=== PATIENT | female | born 1955 | race Two or more races ===

== ENCOUNTER → 2020-04-06 | Outpatient (CLI) | payer OTHER | END | disposition home or self-care (01) | LOC: OFIC 805 08:13 | PROVIDERS: ATTEND Otolaryngology Otology & Neurotology | DX: R09.82 Postnasal drip (principal); R05 Cough; J31.0 Chronic rhinitis ==

== ENCOUNTER 2020-04-18 12:45 | Outpatient (CLI) | payer OTHER | END 2020-04-18 13:03 | disposition home or self-care (01) | LOC: NUCLEAR 12:45 → MAMO-SONO 12:45 → NUCLEAR 14:00 | PROVIDERS: ATTEND Otolaryngology Otology & Neurotology | DX: Z12.31 Encounter for screening mammogram for malignant neoplasm of breast (principal); N64.4 Mastodynia; N60.11 Diffuse cystic mastopathy of right breast ==

== ENCOUNTER → 2022-03-23 | Outpatient (CLI) | payer OTHER | END | disposition home or self-care (01) | LOC: MRI 14:05 | PROVIDERS: ATTEND Internal Medicine | DX: M54.17 Radiculopathy, lumbosacral region (principal) | CPT/HCPCS: 72148 ==

== ENCOUNTER 2022-06-26 06:45 | Outpatient (CLI) | payer OTHER | END 2022-06-26 06:48 | disposition home or self-care (01) | LOC: LAB 06:45 | PROVIDERS: ATTEND Orthopaedic Surgery | DX: E55.9 Vitamin D deficiency, unspecified (principal); M85.9 Disorder of bone density and structure, unspecified; E56.1 Deficiency of vitamin K ==